=== PATIENT | male | born 1960 | race African-American/Black ===

== ENCOUNTER 2020-04-09 14:19 | Inpatient (IN) | payer OTHER ==
[2020-04-09 17:58] VITALS: BMI 19.6
[2020-04-09] MEDS ORDERED: MENTHOL/PHENOL 1 EACH UD MM PRN (18:48)
[2020-04-09] MEDS ORDERED: NICOTINE POLACRILEX 2 MG GUM BUC PRN (18:48)
[2020-04-09] MEDS ORDERED: cloNIDine HCL 0.1 MG TABLET PO PRN (18:48)
[2020-04-09] MEDS ORDERED: ACETAMINOPHEN 325 MG TABLET (FP) PO PRN ×2 (18:48)
[2020-04-09] MEDS ORDERED: ONDANSETRON *ODT* 4 MG TABLET SL PRN (18:48)
[2020-04-09] MEDS ORDERED: MAGNESIUM CITRATE 300 ML BOTTLE PO PRN (18:48)
[2020-04-09] MEDS ORDERED: MAGNESIUM HYDROX 2400MG/30ML ORAL SUSPENSION 30 ML CUP PO PRN (18:48)
[2020-04-09] MEDS ORDERED: IBUPROFEN 400 MG TABLET (FP) PO PRN (18:48)
[2020-04-09] MEDS ORDERED: METHOCARBAMOL 500 MG TABLET PO PRN (18:48)
[2020-04-09] MEDS ORDERED: BISMUTH SUBSALICYLATE 524 MG/30 ML UD PO PRN (18:48)
[2020-04-09] MEDS ORDERED: MAG HYDROX/AL HYDROX/SIMETH 30 ML UNIT-DOSE CUP PO PRN (18:48)
[2020-04-09] MEDS ORDERED: METHADONE HCL 10 MG TABLET (FOR DETOX USE ONLY) PO ONE (19:30)
[2020-04-09] MEDS ORDERED: PERMETHRIN 5% TOPICAL CREAM 60 GM TUBE TP ONE (20:00)
[2020-04-09] MEDS: MELATONIN 5 MG TABLETS PO SCH (21:09)
[2020-04-09] MEDS: THIAMINE HCL 100 MG TABLET (FP) PO SCH (21:09)
[2020-04-09] MEDS ORDERED: hydrOXYzine PAMOATE 25 MG CAPSULE (FP) PO SCH (22:00)
[2020-04-10] MEDS ORDERED: METHADONE HCL 5 MG TABLET (FOR DETOX USE ONLY) ONE (09:19)
[2020-04-10] MEDS ORDERED: METHADONE HCL 10 MG TABLET (FOR DETOX USE ONLY) ONE (09:19)
[2020-04-10 09:26] LABS: HEMATOCRIT 36.3 % (35.4-49); HEMOGLOBIN 11.9 GM/dL (11.7-16.9); MCH 29.4 pg (25.7-33.7); MCHC 32.7 g/dl (32.0-35.9); MEAN CELL VOLUME 89.9 fl (80-96); MEAN PLT VOLUME 7.6 fl (7.5-11.1); PLATELET COUNT 321 K/MM3 (134-434); RBC 4.04 M/mm3 (4.00-5.60); RDW 14.5 % (11.9-15.9); WHITE BLOOD COUNT 5.7 K/mm3 (4.0-10.0)
[2020-04-10 09:39] LABS: ALBUMIN 3.1 g/dl (3.4-5.0); BLOOD UREA NITROGEN 14.4 mg/dL (7-18); CALCIUM 8.6 mg/dL (8.5-10.1)
[2020-04-10 09:43] LABS: BILIRUBIN,TOTAL 0.2 mg/dL (0.2-1); TOT PROT 5.9 g/dl (6.4-8.2)
[2020-04-10] MEDS ORDERED: METHADONE (DETOX) 20 MG, METHADONE (DETOX) 5 MG PO ONE (10:00)
[2020-04-10] MEDS: NICOTINE 14 MG/24 HOURS TOPICAL PATCH TD SCH (10:42)
[2020-04-10] MEDS: PRENATAL VITAMINS W/ FOLIC ACID TABLET (FP) PO SCH (10:43)
[2020-04-10 10:54] LABS: SICKLE CELL SCREEN NEGATIVE (NEGATIVE)
[2020-04-10 16:35] LABS: EPI CELLS 3 /uL (0-25.1); HYALINE CASTS 5 /uL (0-3.1); URINE APPEARANCE CLEAR; URINE BACTERIA 42 /uL (0-1359); URINE BILIRUBIN NEGATIVE (NEGATIVE); URINE COLOR YELLOW; URINE GLUCOSE (UA) NEGATIVE (NEGATIVE); URINE KETONE TRACE (NEGATIVE); URINE LEUK ESTERASE NEGATIVE (NEGATIVE); URINE NITRITE NEGATIVE (NEGATIVE); URINE PROTEIN NEGATIVE (NEGATIVE); URINE RBC 10 /uL (0-23.9); URINE WBC 1 /uL (0-25.8)
[2020-04-10] MEDS: THIAMINE HCL 100 MG TABLET (FP) PO SCH (22:10)
[2020-04-10] MEDS: MELATONIN 5 MG TABLETS PO SCH (22:10)
[2020-04-11] MEDS ORDERED: METHADONE HCL 10 MG TABLET (FOR DETOX USE ONLY) PO ONE (10:00)
[2020-04-11] MEDS: NICOTINE 14 MG/24 HOURS TOPICAL PATCH TD SCH (10:33)
[2020-04-11] MEDS: PRENATAL VITAMINS W/ FOLIC ACID TABLET (FP) PO SCH (10:33)
[2020-04-11] MEDS: hydrOXYzine PAMOATE 25 MG CAPSULE (FP) PO PRN (22:27)
[2020-04-11] MEDS: MELATONIN 5 MG TABLETS PO SCH (22:27)
[2020-04-11] MEDS: THIAMINE HCL 100 MG TABLET (FP) PO SCH (22:27)
[2020-04-12] MEDS ORDERED: METHADONE HCL 10 MG TABLET (FOR DETOX USE ONLY) ONE (08:58)
[2020-04-12] MEDS ORDERED: METHADONE HCL 5 MG TABLET (FOR DETOX USE ONLY) ONE (08:58)
[2020-04-12] MEDS ORDERED: METHADONE (DETOX) 10 MG, METHADONE (DETOX) 5 MG PO ONE (10:00)
[2020-04-12] MEDS: NICOTINE 14 MG/24 HOURS TOPICAL PATCH TD SCH (10:15)
[2020-04-12] MEDS: PRENATAL VITAMINS W/ FOLIC ACID TABLET (FP) PO SCH (10:15)
[2020-04-12] MEDS: SULFAMETHOXAZOLE/TRIMETHOPRIM 800MG/160MG D.S. TABLET PO SCH ×2 (11:51→22:26)
[2020-04-12 15:50] LABS: PH,URINE 8.5 (5.0-8.0); URINE APPEARANCE CLOUDY; URINE BILIRUBIN NEGATIVE (NEGATIVE); URINE COLOR YELLOW; URINE GLUCOSE (UA) NEGATIVE (NEGATIVE); URINE KETONE NEGATIVE (NEGATIVE); URINE LEUK ESTERASE NEGATIVE (NEGATIVE); URINE NITRITE NEGATIVE (NEGATIVE); URINE PROTEIN NEGATIVE (NEGATIVE); URINE UROBILINOGEN 0.2 mg/dL (0.2-1.0)
[2020-04-12] MEDS: hydrOXYzine PAMOATE 25 MG CAPSULE (FP) PO PRN (22:26)
[2020-04-12] MEDS: THIAMINE HCL 100 MG TABLET (FP) PO SCH (22:27)
[2020-04-12] MEDS: MELATONIN 5 MG TABLETS PO SCH (22:27)
[2020-04-13] MEDS ORDERED: METHADONE HCL 10 MG TABLET (FOR DETOX USE ONLY) PO ONE (10:00)
[2020-04-13] MEDS: hydrOXYzine PAMOATE 25 MG CAPSULE (FP) PO PRN (10:19)
[2020-04-13] MEDS: SULFAMETHOXAZOLE/TRIMETHOPRIM 800MG/160MG D.S. TABLET PO SCH ×2 (10:21→22:05)
[2020-04-13] MEDS: PRENATAL VITAMINS W/ FOLIC ACID TABLET (FP) PO SCH (10:22)
[2020-04-13] MEDS: NICOTINE 14 MG/24 HOURS TOPICAL PATCH TD SCH (10:22)
[2020-04-13] MEDS: THIAMINE HCL 100 MG TABLET (FP) PO SCH (22:05)
[2020-04-13] MEDS: MELATONIN 5 MG TABLETS PO SCH (22:05)
[2020-04-14] MEDS ORDERED: METHADONE HCL 5 MG TABLET (FOR DETOX USE ONLY) PO ONE (06:00)
[2020-04-14 06:58] VITALS: PULSE 76
[2020-04-14] MEDS: SULFAMETHOXAZOLE/TRIMETHOPRIM 800MG/160MG D.S. TABLET PO SCH (10:29)
[2020-04-14] MEDS: NICOTINE 14 MG/24 HOURS TOPICAL PATCH TD SCH (10:30)
[2020-04-14] MEDS: PRENATAL VITAMINS W/ FOLIC ACID TABLET (FP) PO SCH (10:30)
[2020-04-14 10:51] VITALS: BP 112/65; TEMP 98.2
== END 2020-04-14 11:15 | disposition other institution (70) | DRG 773 ==
LOC: YASAS 14:19 → Y6N 18:49
PROVIDERS: ADMIT Allergy & Immunology; ATTEND Allergy & Immunology
PROC: HZ2ZZZZ Detoxification Services for Substance Abuse Treatment (ICD-10-PCS; principal; 2020-04-09)
DX: F11.23 Opioid dependence with withdrawal (principal); F14.20 Cocaine dependence, uncomplicated; F17.210 Nicotine dependence, cigarettes, uncomplicated; H54.1131 Blindness right eye category 3, low vision left eye category 1; B85.0 Pediculosis due to Pediculus humanus capitis; E88.09 Other disorders of plasma-protein metabolism, not elsewhere classified; E77.9 Disorder of glycoprotein metabolism, unspecified; K40.90 Unilateral inguinal hernia, without obstruction or gangrene, not specified as recurrent; Z86.11 Personal history of tuberculosis
CPT/HCPCS: 36415; 71046-TC-FY; 80053; 81003; 85027; 85660; 86780; 87086; 93005; 93010; C9803; U0003

== ENCOUNTER 2020-04-14 11:42 | Inpatient (IN) | payer OTHER ==
[2020-04-14] MEDS ORDERED: MAGNESIUM HYDROX 2400MG/30ML ORAL SUSPENSION 30 ML CUP PO PRN (14:44)
[2020-04-14] MEDS ORDERED: NICOTINE POLACRILEX 2 MG GUM BUC PRN (14:44)
[2020-04-14] MEDS ORDERED: LOPERAMIDE HCL 2 MG CAPSULE PO PRN (14:44)
[2020-04-14] MEDS ORDERED: guaiFENesin 200 MG/10 ML 10 ML UNIT-DOSE CUPS PO PRN (14:44)
[2020-04-14] MEDS ORDERED: MAGNESIUM CITRATE 300 ML BOTTLE PO PRN (14:44)
[2020-04-14] MEDS ORDERED: MENTHOL/PHENOL 1 EACH UD MM PRN (14:44)
[2020-04-14] MEDS ORDERED: P-EPHED 60MG/TRIPROLIDI 2.5MG TABLET PO PRN (14:44)
[2020-04-14] MEDS ORDERED: IBUPROFEN 400 MG TABLET (FP) PO PRN (14:44)
[2020-04-14] MEDS: hydrOXYzine PAMOATE 25 MG CAPSULE (FP) PO SCH ×2 (17:59→21:45)
[2020-04-14] MEDS: METHOCARBAMOL 500 MG TABLET PO SCH ×2 (17:59→21:45)
[2020-04-14] MEDS: THIAMINE HCL 100 MG TABLET (FP) PO SCH (21:43)
[2020-04-14] MEDS: MELATONIN 5 MG TABLETS PO SCH (21:44)
[2020-04-14] MEDS: SULFAMETHOXAZOLE/TRIMETHOPRIM 800MG/160MG D.S. TABLET PO SCH (21:45)
[2020-04-14] MEDS ORDERED: MELATONIN 5 MG TABLETS PO SCH (22:00)
[2020-04-15] MEDS: hydrOXYzine PAMOATE 25 MG CAPSULE (FP) PO SCH ×5 (06:24→21:20)
[2020-04-15] MEDS: METHOCARBAMOL 500 MG TABLET PO SCH ×4 (10:22→21:20)
[2020-04-15] MEDS: PRENATAL VITAMINS W/ FOLIC ACID TABLET (FP) PO SCH (10:22)
[2020-04-15] MEDS: NICOTINE 14 MG/24 HOURS TOPICAL PATCH TD SCH (10:22)
[2020-04-15] MEDS: SULFAMETHOXAZOLE/TRIMETHOPRIM 800MG/160MG D.S. TABLET PO SCH ×2 (10:22→21:20)
[2020-04-15] MEDS: THIAMINE HCL 100 MG TABLET (FP) PO SCH (21:20)
[2020-04-15] MEDS: MELATONIN 5 MG TABLETS PO SCH (21:20)
[2020-04-15] MEDS: SUVOREXANT 10 MG TABLET PO PRN (21:20)
[2020-04-16] MEDS: hydrOXYzine PAMOATE 25 MG CAPSULE (FP) PO SCH ×5 (06:50→21:43)
[2020-04-16] MEDS: NICOTINE 14 MG/24 HOURS TOPICAL PATCH TD SCH (10:34)
[2020-04-16] MEDS: PRENATAL VITAMINS W/ FOLIC ACID TABLET (FP) PO SCH (10:34)
[2020-04-16] MEDS: SULFAMETHOXAZOLE/TRIMETHOPRIM 800MG/160MG D.S. TABLET PO SCH ×2 (10:34→21:44)
[2020-04-16] MEDS: ACETAMINOPHEN 325 MG TABLET (FP) PO PRN (10:35)
[2020-04-16] MEDS: METHOCARBAMOL 500 MG TABLET PO SCH ×5 (10:35→23:52)
[2020-04-16] MEDS: MELATONIN 5 MG TABLETS PO SCH (21:44)
[2020-04-16] MEDS: THIAMINE HCL 100 MG TABLET (FP) PO SCH (21:44)
[2020-04-16] MEDS: SUVOREXANT 10 MG TABLET PO PRN (21:44)
[2020-04-17] MEDS: hydrOXYzine PAMOATE 25 MG CAPSULE (FP) PO SCH ×5 (06:34→21:24)
[2020-04-17] MEDS: SULFAMETHOXAZOLE/TRIMETHOPRIM 800MG/160MG D.S. TABLET PO SCH ×2 (11:01→21:25)
[2020-04-17] MEDS: METHOCARBAMOL 500 MG TABLET PO SCH ×4 (11:01→21:25)
[2020-04-17] MEDS: NICOTINE 14 MG/24 HOURS TOPICAL PATCH TD SCH (11:01)
[2020-04-17] MEDS: PRENATAL VITAMINS W/ FOLIC ACID TABLET (FP) PO SCH (11:02)
[2020-04-17] MEDS ORDERED: MASKS NR ONE (17:49)
[2020-04-17] MEDS: THIAMINE HCL 100 MG TABLET (FP) PO SCH (21:24)
[2020-04-17] MEDS: SUVOREXANT 10 MG TABLET PO PRN (21:25)
[2020-04-17] MEDS: MELATONIN 5 MG TABLETS PO SCH (21:25)
[2020-04-18] MEDS: hydrOXYzine PAMOATE 25 MG CAPSULE (FP) PO SCH ×5 (06:39→21:27)
[2020-04-18] MEDS: PRENATAL VITAMINS W/ FOLIC ACID TABLET (FP) PO SCH (10:36)
[2020-04-18] MEDS: SULFAMETHOXAZOLE/TRIMETHOPRIM 800MG/160MG D.S. TABLET PO SCH ×2 (10:36→21:27)
[2020-04-18] MEDS: NICOTINE 14 MG/24 HOURS TOPICAL PATCH TD SCH (10:36)
[2020-04-18] MEDS: METHOCARBAMOL 500 MG TABLET PO SCH ×4 (11:55→21:27)
[2020-04-18] MEDS: MELATONIN 5 MG TABLETS PO SCH (21:27)
[2020-04-18] MEDS: THIAMINE HCL 100 MG TABLET (FP) PO SCH (21:27)
[2020-04-19] MEDS: hydrOXYzine PAMOATE 25 MG CAPSULE (FP) PO SCH ×5 (06:50→21:12)
[2020-04-19] MEDS: ACETAMINOPHEN 325 MG TABLET (FP) PO PRN (09:59)
[2020-04-19] MEDS: PRENATAL VITAMINS W/ FOLIC ACID TABLET (FP) PO SCH (09:59)
[2020-04-19] MEDS: METHOCARBAMOL 500 MG TABLET PO SCH ×4 (09:59→21:11)
[2020-04-19] MEDS: NICOTINE 14 MG/24 HOURS TOPICAL PATCH TD SCH (09:59)
[2020-04-19] MEDS: SULFAMETHOXAZOLE/TRIMETHOPRIM 800MG/160MG D.S. TABLET PO SCH ×2 (09:59→21:11)
[2020-04-19] MEDS: MELATONIN 5 MG TABLETS PO SCH (21:11)
[2020-04-19] MEDS: THIAMINE HCL 100 MG TABLET (FP) PO SCH (21:12)
[2020-04-20] MEDS: hydrOXYzine PAMOATE 25 MG CAPSULE (FP) PO SCH ×5 (07:01→21:32)
[2020-04-20] MEDS: SULFAMETHOXAZOLE/TRIMETHOPRIM 800MG/160MG D.S. TABLET PO SCH ×2 (09:09→21:32)
[2020-04-20] MEDS: PRENATAL VITAMINS W/ FOLIC ACID TABLET (FP) PO SCH (09:09)
[2020-04-20] MEDS: METHOCARBAMOL 500 MG TABLET PO SCH ×4 (09:09→21:32)
[2020-04-20] MEDS: NICOTINE 14 MG/24 HOURS TOPICAL PATCH TD SCH (09:10)
[2020-04-20] MEDS: MELATONIN 5 MG TABLETS PO SCH (21:32)
[2020-04-20] MEDS: THIAMINE HCL 100 MG TABLET (FP) PO SCH (21:32)
[2020-04-21] MEDS: hydrOXYzine PAMOATE 25 MG CAPSULE (FP) PO SCH ×5 (06:50→21:12)
[2020-04-21] MEDS: MAG HYDROX/AL HYDROX/SIMETH 30 ML UNIT-DOSE CUP PO PRN (09:08)
[2020-04-21] MEDS: PRENATAL VITAMINS W/ FOLIC ACID TABLET (FP) PO SCH (09:08)
[2020-04-21] MEDS: SULFAMETHOXAZOLE/TRIMETHOPRIM 800MG/160MG D.S. TABLET PO SCH ×2 (09:08→21:12)
[2020-04-21] MEDS: NICOTINE 14 MG/24 HOURS TOPICAL PATCH TD SCH (09:08)
[2020-04-21] MEDS: METHOCARBAMOL 500 MG TABLET PO SCH ×4 (09:08→21:12)
[2020-04-21] MEDS: THIAMINE HCL 100 MG TABLET (FP) PO SCH (21:12)
[2020-04-21] MEDS: MELATONIN 5 MG TABLETS PO SCH (21:12)
[2020-04-22] MEDS: hydrOXYzine PAMOATE 25 MG CAPSULE (FP) PO SCH ×5 (06:47→21:30)
[2020-04-22] MEDS: PRENATAL VITAMINS W/ FOLIC ACID TABLET (FP) PO SCH (09:06)
[2020-04-22] MEDS: SULFAMETHOXAZOLE/TRIMETHOPRIM 800MG/160MG D.S. TABLET PO SCH ×2 (09:06→21:30)
[2020-04-22] MEDS: METHOCARBAMOL 500 MG TABLET PO SCH ×4 (09:07→21:30)
[2020-04-22] MEDS: NICOTINE 14 MG/24 HOURS TOPICAL PATCH TD SCH (09:07)
[2020-04-22] MEDS: MAG HYDROX/AL HYDROX/SIMETH 30 ML UNIT-DOSE CUP PO PRN (21:30)
[2020-04-22] MEDS: MELATONIN 5 MG TABLETS PO SCH (21:30)
[2020-04-22] MEDS: THIAMINE HCL 100 MG TABLET (FP) PO SCH (21:30)
[2020-04-23] MEDS: hydrOXYzine PAMOATE 25 MG CAPSULE (FP) PO SCH ×5 (06:28→21:52)
[2020-04-23] MEDS: PRENATAL VITAMINS W/ FOLIC ACID TABLET (FP) PO SCH (09:38)
[2020-04-23] MEDS: METHOCARBAMOL 500 MG TABLET PO SCH ×4 (09:38→21:52)
[2020-04-23] MEDS: NICOTINE 14 MG/24 HOURS TOPICAL PATCH TD SCH (09:38)
[2020-04-23] MEDS: SULFAMETHOXAZOLE/TRIMETHOPRIM 800MG/160MG D.S. TABLET PO SCH ×2 (09:38→21:52)
[2020-04-23] MEDS ORDERED: ARTIFICIAL TEARS (POLYVINYL ALCOHOL) OPTH DROPS OU PRN (11:00)
[2020-04-23] MEDS: THIAMINE HCL 100 MG TABLET (FP) PO SCH (21:52)
[2020-04-23] MEDS: MELATONIN 5 MG TABLETS PO SCH (21:53)
[2020-04-24] MEDS: hydrOXYzine PAMOATE 25 MG CAPSULE (FP) PO SCH ×5 (06:44→22:05)
[2020-04-24] MEDS: SULFAMETHOXAZOLE/TRIMETHOPRIM 800MG/160MG D.S. TABLET PO SCH ×2 (09:53→22:05)
[2020-04-24] MEDS: METHOCARBAMOL 500 MG TABLET PO SCH ×4 (09:53→22:05)
[2020-04-24] MEDS: PRENATAL VITAMINS W/ FOLIC ACID TABLET (FP) PO SCH (09:53)
[2020-04-24] MEDS: NICOTINE 14 MG/24 HOURS TOPICAL PATCH TD SCH (09:54)
[2020-04-24] MEDS: MELATONIN 5 MG TABLETS PO SCH (22:05)
[2020-04-24] MEDS: THIAMINE HCL 100 MG TABLET (FP) PO SCH (22:05)
[2020-04-25 07:09] VITALS: BP 123/65; PULSE 74; TEMP 97.3
[2020-04-25] MEDS: hydrOXYzine PAMOATE 25 MG CAPSULE (FP) PO SCH ×2 (08:00→10:04)
[2020-04-25] MEDS: PRENATAL VITAMINS W/ FOLIC ACID TABLET (FP) PO SCH (10:02)
[2020-04-25] MEDS: SULFAMETHOXAZOLE/TRIMETHOPRIM 800MG/160MG D.S. TABLET PO SCH (10:03)
[2020-04-25] MEDS: NICOTINE 14 MG/24 HOURS TOPICAL PATCH TD SCH (10:03)
[2020-04-25] MEDS: METHOCARBAMOL 500 MG TABLET PO SCH (10:04)
== END 2020-04-25 11:10 | disposition home or self-care (01) | DRG 772 ==
LOC: YASAS 11:42 → Y5N 11:43
PROVIDERS: ADMIT Allergy & Immunology; ATTEND Allergy & Immunology
PROC: HZ42ZZZ Group Counseling for Substance Abuse Treatment, Cognitive-Behavioral (ICD-10-PCS; principal; 2020-04-14)
DX: F11.20 Opioid dependence, uncomplicated (principal); F14.20 Cocaine dependence, uncomplicated; F17.210 Nicotine dependence, cigarettes, uncomplicated; F19.282 Other psychoactive substance dependence with psychoactive substance-induced sleep disorder; H54.1131 Blindness right eye category 3, low vision left eye category 1; K40.90 Unilateral inguinal hernia, without obstruction or gangrene, not specified as recurrent; Z56.0 Unemployment, unspecified; Z86.11 Personal history of tuberculosis